=== PATIENT | male | born 1970 | race Caucasian/White ===

== ENCOUNTER → 2017-06-04 | Outpatient (CLI) | payer OTHER | END | disposition home or self-care (01) | LOC: PNCL 11:22 | DX: M54.5 Low back pain (principal); M79.662 Pain in left lower leg; M79.661 Pain in right lower leg; I10 Essential (primary) hypertension; M19.90 Unspecified osteoarthritis, unspecified site | CPT/HCPCS: 99214 ==

== ENCOUNTER → 2017-06-12 | Outpatient (CLI) | payer OTHER | LOC: MRI 14:52 | DX: M50.121 Cervical disc disorder at C4-C5 level with radiculopathy (principal); M47.22 Other spondylosis with radiculopathy, cervical region; M25.78 Osteophyte, vertebrae; M48.02 Spinal stenosis, cervical region; I10 Essential (primary) hypertension; Z79.899 Other long term (current) drug therapy; M19.90 Unspecified osteoarthritis, unspecified site | CPT/HCPCS: 72141 ==

== ENCOUNTER 2018-07-08 13:38 | Emergency (ER) | payer OTHER ==
[~2018-07-08] VITALS: Ht 170.2 cm; Wt 77.1 kg
[~2018-07-08 13:38] MED LIST: BUPR150T6 PO; CLON0.5T11 PO; FENT1PAT15 TD; HYDR-2769 PO; LAMO150T2 PO; LEVO120C PO; MIRT15TA3 PO
[2018-07-08] MEDS ORDERED: IV NORMAL SALINE 1000ML BAG 1,000 ML IV SCH (15:04)
[2018-07-08] MEDS ORDERED: fentaNYL PF VIAL 100 MCG/2 ML VIAL IV ONE (15:15)
[2018-07-08] MEDS ORDERED: ONDANSETRON PF 4 MG/2 ML VIAL. IV ONE (15:15)
[2018-07-08] MEDS ORDERED: IOHEXOL 300 MG/ML 100ML VIAL. IV ONE (15:30)
[2018-07-08] MEDS ORDERED: CONTRAST GIVEN. MC PRN (15:30)
[2018-07-08 15:32] LABS: BASO # 0.1 x10^3/uL (0.0-0.2); BASO % 0 % (0-3); EOS # 0.2 x10^3/uL (0.0-0.7); EOS % 2 % (0-3); HEMATOCRIT 43.1 % (39.0-53.0); HEMOGLOBIN 14.7 g/dL (13.0-17.5); LYMPH # 1.3 x10^3/uL (1.0-4.8); LYMPH % 10 % (24-48); MEAN CORPUSCULAR HEMOGLOBIN 30 pg (25-35); MEAN CORPUSCULAR HGB CONC 34 g/dL (31-37); MEAN CORPUSCULAR VOLUME 88 fL (79-100); MONO # 0.5 x10^3/uL (0.0-1.1); MONO % 4 % (0-9); NEUT # 10.4 x10^3uL (1.8-7.7); NEUT % 83 % (31-73); PLATELET COUNT 198 x10^3/uL (140-400); RED BLOOD COUNT 4.93 x10^6/uL (4.30-5.70); RED CELL DISTRIBUTION WIDTH 13.1 % (11.5-14.5); WHITE BLOOD COUNT 12.5 x10^3/uL (4.0-11.0)
[2018-07-08 15:42] LABS: CALCIUM 9.3 mg/dL (8.5-10.1); GFR 80.4; POTASSIUM 4.5 mmol/L (3.5-5.1)
[2018-07-08 15:43] LABS: PROTHROMBIN TIME PATIENT 12.9 SEC (11.7-14.0)
--- NOTE | 2018-07-08 16:13 | EKG ---
[facility] [address] [place] [address] Test Date: 2018-07-08 Test Time: 15:35:42 Pat Name: DAYAN HARRINGTON Department: Room: Gender: M Director Telehealth: : 1970 Requested By: SANTINO BUSTILLO Order Number: [id number] Reading MD: Homar Carrera Measurements Intervals [place]el Rate: 78 P: 29 RI: 158 QRS: -24 QRSD: 88 T: 30 QT: 368 QTc: 423 Interpretive Statements SINUS RHYTHM LEFTWARD AXIS NO SPECIFIC ECG ABNORMALITIES RI6.01 Unconfirmed report No previous ECG available for comparison Electronically Signed On 07-10-2018 9:57:45 CDT by Homar Carrera
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
--- NOTE | 2018-07-08 16:59 | RAD ---
CT of the thoracic and lumbar spine without contrast, 07/08/2018: Noncontrast scans were obtained in conjunction with the patient's CT chest, abdomen and pelvis exam. Multiplanar reconstructions were produced. There are mild superior endplate deformities at T5 and T6. The endplates are somewhat sclerotic with mild anterior spurring. No acute fracture line is seen. There is no evidence of paraspinous hemorrhage These are probably old fractures. There is no significant retropulsion of fracture fragments. There is also mild loss of height of the T12 and L2 vertebral bodies with Schmorl's nodes along the superior endplates. No acute fracture line is seen. These fractures also appear old. There are additional scattered spurs in the thoracic and lumbar spine. There are mild degenerative changes involving scattered facet joints particularly in the lower lumbar region. There is no evidence of significant central spinal stenosis. The posterior disc margins are poorly defined due to artifacts. IMPRESSION: 1. Mild scattered degenerative changes. 2. Mild loss of height of the T5, T6, T12 and L2 vertebral bodies is probably chronic. 3. No definite acute fracture or subluxation is evident. PQRS Compliance Statement: One or more of the following individualized dose reduction techniques were utilized for this examination: 1. Automated exposure control 2. Adjustment of the mA and/or kV according to patient size 3. Use of iterative reconstruction technique Electronically signed by: Wilbur Akbar MD (07/08/2018 4:56 PM) [facility]
[2018-07-08] MEDS ORDERED: MORPHINE SULFATE 4 MG/ML VIAL. IV ONE (17:15)
[2018-07-08 17:50] LABS: BILIRUBIN,URINE NEGATIVE (NEG); CLARITY,URINE CLEAR; COLOR,URINE YELLOW; NITRITE,URINE NEGATIVE (NEG); PROTEIN,URINE NEGATIVE (NEG-TRACE); UROBILINOGEN,URINE 0.2 mg/dL (0.2 mg/dL)
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
[2018-07-08 17:59] LABS: AMPHETAMINE/METHAMPHETAMINE NEG (NEG); BACTERIA,URINE 0 /HPF (0-FEW); BARBITURATES NEG (NEG); BENZODIAZEPINES NEG (NEG); CANNABINOIDS NEG (NEG); COCAINE NEG (NEG); HYALINE CASTS, URINE FEW /HPF; METHADONE NEG (NEG); OPIATES POS (NEG); PHENCYCLIDINE NEG (NEG); SQUAMOUS EPITHELIAL CELL,UR OCC /LPF; WBC,URINE 0 /HPF (0-4)
[2018-07-08] MEDS ORDERED: AMOX1TAB61 PO (18:00)
[2018-07-08] MEDS ORDERED: CYCL10TA2 PO (18:02)
[2018-07-08 18:10] VITALS: BP 133/84
[2018-07-08] MEDS ORDERED: CARI350T PO (18:42)
== END 2018-07-08 19:20 | disposition home or self-care (01) ==
LOC: ER 13:38
DX: H65.02 Acute serous otitis media, left ear (principal); R11.0 Nausea; R09.81 Nasal congestion; J02.9 Acute pharyngitis, unspecified; R10.9 Unspecified abdominal pain; R51 Headache; H53.8 Other visual disturbances; M54.2 Cervicalgia; J34.1 Cyst and mucocele of nose and nasal sinus; M47.894 Other spondylosis, thoracic region; M47.896 Other spondylosis, lumbar region; M19.90 Unspecified osteoarthritis, unspecified site; Z98.52 Vasectomy status; V49.9XXA Car occupant (driver) (passenger) injured in unspecified traffic accident, initial encounter; Y93.89 Activity, other specified; Y92.410 Unspecified street and highway as the place of occurrence of the external cause; Y99.8 Other external cause status
CPT/HCPCS: 36415; 70450; 71260; 72125; 74177; 80048; 80307; 81001; 85025; 85610; 85730; 86850; 86900; 86901; 93005; 96374; 96375; 99285; G0480; J2270; J2405; J3010; J7030; Q9967